=== PATIENT | male | born 2000 | race African-American/Black ===

== ENCOUNTER 2018-10-31 19:10 | Emergency (ER) | payer OTHER, SELFPAY ==
[2018-10-31 19:20] VITALS: BP 140/83; PULSE 104; RESP 18; TEMP 37.1; O2SAT 100; BMI 24.0
[2018-10-31 19:33] LABS: Bacteria Urine None Seen
--- NOTE | 2018-10-31 19:33 | ED.MALEGU ---
HPI - Male Genitourinary <Mónica Farley PA-C - Last Filed: 10/31/18 21:17> General Chief complaint: Urogenital-Male Stated complaint: STD CHECK Time Seen by Provider: 10/31/18 19:18 Source: patient Mode of arrival: ambulatory Limitations: no limitations History of Present Illness HPI Narrative: This 18-year-old male comes to ED requesting STD testing. He states that he has been feeling well other than noticing some penile discharge, slightly brown in color, for the last 2 days. He denies any testicular or scrotal pain. He denies any fever. He denies any rash or lesions. He denies any dysuria, hematuria, frequency or urgency. No abdominal pain, vomiting or other new complaints on systems review. He noted this after seeing a new female partner, but does not know of any specific exposures. Related Data Home Medications Medication Instructions Recorded Confirmed No Known Home Medications 10/31/18 10/31/18 Allergies Allergy/AdvReac Type Severity Reaction Status Date / Time No Known Drug Allergies Allergy Verified 10/31/18 19:20 Review of Systems <Mónica Farley PA-C - Last Filed: 10/31/18 21:17> Review of Systems ROS Unobtainable: All systems reviewed & are unremarkable except as noted in HPI and below PFSH <Mónica Farley PA-C - Last Filed: 10/31/18 21:17> Medical History (Updated 10/31/18 @ 21:44 by Mónica Farley PA-C) No chronic problems (Chronic) No pertinent family history (Chronic) Surgical History (Updated 10/31/18 @ 19:43 by Mónica Farley PA-C) No pertinent past surgical history (Chronic) Social History Smoking Status: Never smoker Social History Smoking Status: Never smoker Exam <Mónica Farley PA-C - Last Filed: 10/31/18 21:17> Narrative Exam Narrative: GENERAL APPEARANCE: Patient sitting comfortably, in no distress. LUNGS: Clear to auscultation bilaterally. HEART: Rate and rhythm regular without murmur, normal S1 and S2, no S3 or S4. : Normal genitalia, no testicular masses, no skin lesions, no penile discharge Initial Vital Signs Initial Vital Signs: Vital Signs Temperature 98.7 F 10/31/18 19:20 Pulse Rate 104 H 10/31/18 19:20 Respiratory Rate 18 10/31/18 19:20 Blood Pressure 140/83 10/31/18 19:20 Pulse Oximetry 100 10/31/18 19:20 <Conor Hernandez DO - Last Filed: 10/31/18 21:48> Initial Vital Signs Initial Vital Signs: Vital Signs Temperature 98.7 F 10/31/18 19:20 Pulse Rate 104 H 10/31/18 19:20 Respiratory Rate 18 10/31/18 19:20 Blood Pressure 140/83 10/31/18 19:20 Pulse Oximetry 100 10/31/18 19:20 Course <Mónica Farley PA-C - Last Filed: 10/31/18 21:17> Additional Information: Patient did not have any discharge on exam, no specific exposure known. Testing is negative. Advised follow-up with PCP to discuss further STD testing and referral for further workup as needed, and he is agreeable Orders Ordered: ED Orders 10/31/18 19:30 Urinalysis and Microscopic Stat Urine Chlamydia Gonorrhea PCR Stat Vital Signs - 8 hr 10/31/18 19:20 10/31/18 21:16 Temperature 98.7 F 98.2 F Pulse Rate 104 H 74 Respiratory Rate 18 18 Blood Pressure 140/83 113/80 Pulse Oximetry 100 98 <Conor Hernandez DO - Last Filed: 10/31/18 21:48> Orders Ordered: ED Orders 10/31/18 19:30 Urinalysis and Microscopic Stat Urine Chlamydia Gonorrhea PCR Stat Vital Signs - 8 hr 10/31/18 19:20 10/31/18 21:16 Temperature 98.7 F 98.2 F Pulse Rate 104 H 74 Respiratory Rate 18 18 Blood Pressure 140/83 113/80 Pulse Oximetry 100 98 MDM - Male Genitourinary <Mónica Farley PA-C - Last Filed: 10/31/18 21:17> Lab Data Lab Results 10/31/18 10/31/18 Range/Units 19:30 19:30 Urine Color Yellow Urine Appearance Clear Urine pH 7.5 (4.5-8.0) Ur Specific [place] 1.015 (1.000-1.035) Urine Protein Negative (Negative) Urine Glucose (UA) Negative (Negative) g/dL Urine Ketones Negative (NEGATIVE) Urine Occult Blood Trace-intact (Negative) Urine Nitrate Negative (Negative) Urine Bilirubin Negative (NEGATIVE) Urine Urobilinogen 0.2 (0.2) E.U./dL Ur Leukocyte Esterase Negative (NEGATIVE) Urine RBC 0-1/hpf (0-5/HPF) Urine WBC 0-1/hpf (0-5/HPF) Ur Squamous Epith Cells 0-1 /hpf (0-5/HPF) Urine Bacteria None seen (None) Ur Culture Indicated? Cult not indicated Ur Chlamydia DNA (PCR) Not detected N gonorrhoeae DNA (PCR) Not detected <Conor Hernandez DO - Last Filed: 10/31/18 21:48> Lab Data Lab Results 10/31/18 10/31/18 Range/Units 19:30 19:30 Urine Color Yellow Urine Appearance Clear Urine pH 7.5 (4.5-8.0) Ur Specific [place] 1.015 (1.000-1.035) Urine Protein Negative (Negative) Urine Glucose (UA) Negative (Negative) g/dL Urine Ketones Negative (NEGATIVE) Urine Occult Blood Trace-intact (Negative) Urine Nitrate Negative (Negative) Urine Bilirubin Negative (NEGATIVE) Urine Urobilinogen 0.2 (0.2) E.U./dL Ur Leukocyte Esterase Negative (NEGATIVE) Urine RBC 0-1/hpf (0-5/HPF) Urine WBC 0-1/hpf (0-5/HPF) Ur Squamous Epith Cells 0-1 /hpf (0-5/HPF) Urine Bacteria None seen (None) Ur Culture Indicated? Cult not indicated Ur Chlamydia DNA (PCR) Not detected N gonorrhoeae DNA (PCR) Not detected Discharge Plan Departure Patient Disposition: Home Clinical Impression: Exposure to potentially hazardous body fluids Discharge Date/Time: 10/31/18 21:45 Interventions: ED Discharge Assessment Last Done: 10/31/18 21:16 Activity Restrictions/Additional Instructions: As we talked about, your test for urinary infection, gonorrhea, and chlamydia, were negative today, however you should follow-up with your PCP to discuss testing for other sexually transmitted diseases as we talked about, i.e. syphilis, hepatitis, HIV. You should also follow up evaluate for persistent discharge as you may need further testing and referral for this. [place] Prescriptions: No Action No Known Home Medications RF: 0 Referrals: [facility] [Provider Group] <Conor Hernandez, - Last Filed: 10/31/18 21:48> Cosign ED Attending Dianna Attestation: I was available for consultation during this patient's emergency department encounter
[2018-10-31 19:35] LABS: Appearance Urine UA CLEAR; Bilirubin Urine UA NEGATIVE (NEGATIVE); Color Urine UA YELLOW; Glucose Urine UA NEGATIVE (Negative); Ketones Urine UA NEGATIVE (NEGATIVE); Leukocyte Esterase Urine UA NEGATIVE (NEGATIVE); Nitrite Urine UA NEGATIVE (Negative); Occult Blood Urine UA TRACE-INTACT (Negative); Protein Urine UA NEGATIVE (Negative); Specific Gravity Urine UA 1.015 (1.000-1.035); Urobilinogen Urine UA 0.2 E.U./dL (0.2); pH Urine UA 7.5 (4.5-8.0)
[2018-10-31 19:46] LABS: Culture Indicated Urine Cult Not Indicated; RBC Urine 0-1/HPF (0-5/HPF); Squamous Epithelial Cell Urine 0-1 /HPF (0-5/HPF); WBC Urine 0-1/HPF (0-5/HPF)
[2018-10-31 21:02] LABS: Urine N gonorrhoeae NOT DETECTED
[2018-10-31 21:05] LABS: Urine Chlamydia NOT DETECTED
[2018-10-31 21:16] VITALS: BP 113/80; PULSE 74; RESP 18; TEMP 36.8; O2SAT 98
== END 2018-10-31 21:45 | disposition home or self-care (01) ==
PROVIDERS: Emergency Medicine; Emergency Provider Internal Medicine
DX: R36.9 Urethral discharge, unspecified (principal); Z77.21 Contact with and (suspected) exposure to potentially hazardous body fluids
CPT/HCPCS: 81001; 87491; 87591; 99282